=== PATIENT | female | born 1950 | race Caucasian/White ===

== ENCOUNTER 2023-08-20 05:45 | Day surgery (SDC) | payer OTHER ==
[~2023-08-20] VITALS: Ht 160 cm; Wt 87.5 kg
[2023-08-20] MEDS ORDERED: CEFAZOLIN SOD 2 GM in D5W 50 ML IV ONE (07:00)
[2023-08-20 07:30] VITALS: O2SAT 98
[2023-08-20] MEDS ORDERED: PROPOFOL 200MG/ 20ML VIAL (DIPRIVAN) IV ONE (08:05)
[2023-08-20] MEDS ORDERED: SUGAMMADEX SODIUM 200 MG/2 ML VIAL IV ONE (08:05)
[2023-08-20] MEDS ORDERED: ROCURONIUM BROMIDE 10 MG/ML (ZEMURON) ONE (08:05)
[2023-08-20] MEDS ORDERED: LR 1,000 ML IV.SOLN IV ONE (08:05)
[2023-08-20] MEDS ORDERED: ONDANSETRON HCL 4 MG/2 ML VIAL ONE (08:05)
[2023-08-20] MEDS ORDERED: DEXAMETHASONE SOD PHOSPHATE 4 MG/ML VIAL ONE (08:05)
[2023-08-20] MEDS ORDERED: MIDAZOLAM HCL 2 MG/2 ML VIAL (VERSED) ONE (08:05)
[2023-08-20] MEDS ORDERED: LIDOCAINE 2%, 20 ML MDV ONE (08:05)
[2023-08-20] MEDS ORDERED: hydrALAZINE HCL 20 MG/ML VIAL ONE (08:05)
[2023-08-20] MEDS ORDERED: KETOROLAC TROMETHAMINE 30 MG VIAL ONE (08:05)
[2023-08-20] MEDS ORDERED: fentaNYL CITRATE/PF 100 MCG/2 ML AMP ONE (08:05)
[2023-08-20] MEDS ORDERED: BUPIVACAINE /PF 0.25% 30 ML VIAL INJ ONE (08:05)
[2023-08-20] MEDS ORDERED: BUPIVACAINE /PF 0.5% 30 ML VIAL ONE (08:05)
[2023-08-20] MEDS ORDERED: DESFLURANE 15 MIN GAS INH ONE (08:05)
[2023-08-20] MEDS ORDERED: FUROSEMIDE 40 MG/4 ML VIAL ONE (08:05)
[2023-08-20] MEDS ORDERED: ACETAMINOPHEN I.V. 1000 MG 100 ML IV ONE (08:42)
[2023-08-20] MEDS ORDERED: METOCLOPRAMIDE HCL 10 MG/2 ML VIAL IVP PRN (09:15)
[2023-08-20] MEDS ORDERED: MEPERIDINE HCL/PF 25 MG/ML DISP.SYRIN IVP PRN (10:00)
[2023-08-20] MEDS ORDERED: LR 1,000 ML IV SCH (10:00)
[2023-08-20] MEDS ORDERED: hydrALAZINE HCL 20 MG/ML VIAL IVP PRN (10:00)
[2023-08-20] MEDS ORDERED: LABETALOL 100 MG/ 20ML VIAL IVP PRN (10:00)
[2023-08-20] MEDS ORDERED: HYDROmorphone 1 MG/ML INJ. CARTRIDGE IVP PRN ×2 (10:00)
[2023-08-20] MEDS ORDERED: HYDROcodone/ACETAMIN 5-325 MG TAB (NORCO/ VICODIN) PO PRN (11:00)
[2023-08-20] MEDS ORDERED: OXYCODONE/ACETAMINOPHEN 5-325 TABLET PO PRN ×2 (11:00)
[2023-08-20] MEDS ORDERED: ONDANSETRON HCL 4 MG/2 ML VIAL IVP PRN (11:00)
[2023-08-20 17:30] VITALS: BP_SYST 126; PULSE 52; RESP 19; TEMP 97.3
== END 2023-08-20 18:59 | disposition home or self-care (01) ==
LOC: SDS 05:45 → SMU 05:45 → SDS 18:59
PROVIDERS: ATTEND Specialist
DX: N81.4 Uterovaginal prolapse, unspecified (principal); I10 Essential (primary) hypertension; K21.9 Gastro-esophageal reflux disease without esophagitis; E11.9 Type 2 diabetes mellitus without complications; E03.9 Hypothyroidism, unspecified; E66.9 Obesity, unspecified; E78.00 Pure hypercholesterolemia, unspecified; Z68.37 Body mass index [BMI] 37.0-37.9, adult; Z79.84 Long term (current) use of oral hypoglycemic drugs; Z79.899 Other long term (current) drug therapy
CPT/HCPCS: 87081; 58550; 82948; 57260; 82962; 88307; 64488; J3490 ×3; J0690; J1100; J1940; J0360; J1885; J2001; J3465; J2405; J2704; J3010; J7060; J7120; C1727; J0131; S2900